=== PATIENT | female | born 1945 | race Caucasian/White ===

== ENCOUNTER → 2019-01-31 | Outpatient (CLI) | payer MEDICARE ==
[~2019-01-31] MED LIST: CALC600T12 PO; CARV3.12 PO; COLON HEALTH PO; HYDR25TA PO; MULT-40 PO; NAPR220C15 PO
== END | disposition home or self-care (01) ==
LOC: RAH 13:38
PROVIDERS: ATTEND Physical Medicine & Rehabilitation
DX: M47.26 Other spondylosis with radiculopathy, lumbar region (principal)
CPT/HCPCS: 72110

== ENCOUNTER → 2023-03-02 | Outpatient (CLI) | payer MEDICARE, OTHER ==
[~2023-03-02] MED LIST changes: +CALC-1125 PO; -CALC600T12 PO
== END | disposition home or self-care (01) ==
LOC: RAH 12:38
PROVIDERS: ATTEND Orthopaedic Surgery
DX: M19.011 Primary osteoarthritis, right shoulder (principal); Z96.611 Presence of right artificial shoulder joint
CPT/HCPCS: 73030